=== PATIENT | male | born 1955 | race American Indian/Alaskan Native ===

== ENCOUNTER 2017-11-07 19:59 | Emergency (ER) | payer OTHER, SELFPAY ==
[2017-11-07 20:13] VITALS: BP 120/62; PULSE 75; RESP 14; TEMP 36.4; O2SAT 97; BMI 22.9
== END 2017-11-07 23:28 | disposition left against medical advice (07) ==
DX: S69.90XA Unspecified injury of unspecified wrist, hand and finger(s), initial encounter (principal)
CPT/HCPCS: 99281; 99282